=== PATIENT | female | born 1965 | race Caucasian/White ===

== ENCOUNTER 2018-08-15 09:27 | Emergency (ER) | payer MEDICAID ==
[~2018-08-15] VITALS: Ht 157.5 cm; Wt 100.0 kg
[~2018-08-15 09:27] MED LIST: NO HOME MEDS
[2018-08-15 09:30] VITALS: BP 135/78
[2018-08-15] MEDS ORDERED: cephalexin 250mg capsule PO ONE (10:00)
[2018-08-15] MEDS ORDERED: LIDOcaine 1% 30ml preserv. free vial IJ ONE (10:00)
--- NOTE | 2018-08-15 10:33 | NUR ---
pt. very upset with the md... as the charge nurse i had a 20 minute discussion with pt. i talked to the PA who agreed to see pt. pt. brought back into room 09
--- NOTE | 2018-08-15 10:40 | NUR ---
pulled medications and went into pt's room.... pt. stated tearfully that she did not think she would be able to let us stick a needle in her finger.... i explained to her that they could not sew her finger closed with out numbing it. i told her i would personaly hold her hand. i explained that after it was numb the pain would go away.... room set up for sutures.
[2018-08-15] MEDS ORDERED: CEPH500C5 PO (11:29)
[2018-08-15] MEDS ORDERED: HYDR-4383 PO (11:29)
--- NOTE | 2018-08-15 11:31 | NUR ---
PT AGREED TO GO BACK TO ROOM AND SEE A DIFFERENT PROVIDER.
== END 2018-08-15 12:30 | disposition home or self-care (01) ==
LOC: ER 09:28
DX: S61.211A Laceration without foreign body of left index finger without damage to nail, initial encounter (principal); F15.90 Other stimulant use, unspecified, uncomplicated; F19.90 Other psychoactive substance use, unspecified, uncomplicated; Z86.19 Personal history of other infectious and parasitic diseases; Z90.49 Acquired absence of other specified parts of digestive tract; Z98.890 Other specified postprocedural states; Z88.5 Allergy status to narcotic agent; W26.8XXA Contact with other sharp object(s), not elsewhere classified, initial encounter; Y93.89 Activity, other specified; Y92.89 Other specified places as the place of occurrence of the external cause; Y99.8 Other external cause status
CPT/HCPCS: 12001; 73140; 99283; J3490

== ENCOUNTER 2018-08-17 00:31 | Inpatient (IN) | payer MEDICAID | END 2018-08-22 14:10 | disposition home or self-care (01) | LOC: ER 00:31 → ED HOLD 02:49 → ORTHO 4S 03:45 ==

== ENCOUNTER 2019-09-07 13:21 | Emergency (ER) | payer MEDICAID ==
[~2019-09-07] VITALS: Ht 157.5 cm; Wt 105.2 kg
[~2019-09-07 13:21] MED LIST changes: +HYDR-4383 PO; +LACT1CAP26 PO; -NO HOME MEDS
[2019-09-07 13:26] VITALS: BP 136/63
--- NOTE | 2019-09-07 14:30 | NUR ---
PT STATES THAT SHE IS GOING TO LEAVE, SHE IS BREATHING BETTER AND THAT SHE WILL BE FINE. LEGAL ARBITRATOR NOTIFIED, PT TAKEN TO FAST TRACK FOR VERTICAL 3 EVALUATION BY PROVIDER.
[2019-09-07] MEDS ORDERED: BUDE180A INH (15:34)
[2019-09-07] MEDS ORDERED: ALBU18HF2 INH (15:34)
--- NOTE | 2019-09-07 15:37 | NUR ---
PT REQUESTING TO LEAVE DUE TO IT BEING BUSY. PT ASKED TO WAIT A MOMENT AND THAT A MD WOUND BE CONTACTED. DR GERMAN SAW PT IN ER [phone]
[2019-09-07] MEDS ORDERED: AZIT-31 PO (15:46)
== END 2019-09-07 15:53 | disposition home or self-care (01) ==
LOC: ER 13:22
DX: J44.1 Chronic obstructive pulmonary disease with (acute) exacerbation (principal); F41.9 Anxiety disorder, unspecified; F17.200 Nicotine dependence, unspecified, uncomplicated; F15.90 Other stimulant use, unspecified, uncomplicated; Z86.19 Personal history of other infectious and parasitic diseases; Z90.49 Acquired absence of other specified parts of digestive tract; Z98.890 Other specified postprocedural states; Z56.0 Unemployment, unspecified; Z88.6 Allergy status to analgesic agent; Z79.899 Other long term (current) drug therapy
CPT/HCPCS: 71045; 99283

== ENCOUNTER 2019-12-04 12:48 | Emergency (ER) | payer MEDICAID ==
[~2019-12-04] VITALS: Ht 157.5 cm; Wt 113.2 kg
[~2019-12-04 12:48] MED LIST changes: +ALBU18HF2 INH; +BUDE180A INH
[2019-12-04] MEDS ORDERED: ibuprofen 200mg tablet PO ONE (14:15)
[2019-12-04 15:01] VITALS: BP 124/59
== END 2019-12-04 15:29 | disposition home or self-care (01) ==
LOC: ER 12:48
DX: M25.561 Pain in right knee (principal); J44.9 Chronic obstructive pulmonary disease, unspecified; F41.9 Anxiety disorder, unspecified; F15.90 Other stimulant use, unspecified, uncomplicated; F11.90 Opioid use, unspecified, uncomplicated; Z56.0 Unemployment, unspecified; Z86.19 Personal history of other infectious and parasitic diseases; Z90.49 Acquired absence of other specified parts of digestive tract; Z98.890 Other specified postprocedural states; Z88.5 Allergy status to narcotic agent; Z79.899 Other long term (current) drug therapy; W01.0XXA Fall on same level from slipping, tripping and stumbling without subsequent striking against object, initial encounter; Y93.89 Activity, other specified; Y92.89 Other specified places as the place of occurrence of the external cause; Y99.8 Other external cause status
CPT/HCPCS: 29505; 73502; 73564; 99284

== ENCOUNTER 2021-11-24 07:13 | Emergency (ER) | payer MEDICAID ==
[~2021-11-24] VITALS: Ht 157.5 cm; Wt 102.3 kg
[2021-11-24 08:27] LABS: BASOPHILS % (AUTO) 0.4 % (0-1); EOSINOPHILS # (AUTO) 0.3 X10'3 (0-0.9); EOSINOPHILS % (AUTO) 3.4 % (0-6); HEMATOCRIT 43.7 % (35.0-45.0); HEMOGLOBIN 14.4 g/dl (12.0-16.0); LYMPHOCYTES # (AUTO) 2.2 X10'3 (1.1-4.8); LYMPHOCYTES % (AUTO) 25.9 % (21-51); MEAN CORPUSCULAR HEMOGLOBIN 28.5 PG (27.0-31.0); MEAN CORPUSCULAR VOLUME 86.5 FL (78-98); MEAN PLATELET VOLUME 8.1 FL (7.4-10.4); MONOCYTES # (AUTO) 0.6 X10'3 (0-0.9); MONOCYTES % (AUTO) 6.6 % (2-12); NEUTROPHILS # (AUTO) 5.5 X10'3 (1.8-7.7); NEUTROPHILS % (AUTO) 63.7 % (42-75); PLATELET COUNT 351 X10'3 (140-440); RED BLOOD COUNT 5.05 X10'6 (4.20-5.60); RED CELL DISTRIBUTION WIDTH 13.3 % (11.5-14.5); WHITE BLOOD COUNT 8.7 X10'3 (4.5-11.0)
[2021-11-24 08:35] LABS: ALANINE AMINOTRANSFERASE 38 U/L (12-78); ALBUMIN 3.6 G/DL (3.4-5.0); ALBUMIN/GLOBULIN RATIO 0.9 (1.1-1.5); ALKALINE PHOSPHATASE 60 IU/L (46-116); ANION GAP 9 (8-16); ASPARTATE AMINO TRANSFERASE 16 U/L (10-37); BILIRUBIN,TOTAL 0.2 MG/DL (0.1-1.0); BLOOD UREA NITROGEN 13 MG/DL (7-18); BUN/CREATININE RATIO 20.3 (6.6-38.0); CALCIUM 8.6 MG/DL (8.5-10.1); CHLORIDE 105 MMOL/L (99-107); CREATININE 0.64 MG/DL (0.40-0.90); GLUCOSE 116 MG/DL (70-104); POTASSIUM 4.1 MMOL/L (3.5-5.1); SODIUM 141 MMOL/L (135-145); TOTAL CARBON DIOXIDE 27.4 MMOL/L (24-32); TOTAL PROTEIN 7.6 G/DL (6.4-8.2); eGFR > 90 ML/MIN
[2021-11-24] MEDS ORDERED: ipratropium/albuterol 3ml nebule NEB ONE (09:20)
--- NOTE | 2021-11-24 09:52 | NUR ---
RT AT BEDSIDE.
--- NOTE | 2021-11-24 10:15 | NUR ---
PROVIDER AT BEDSIDE.
[2021-11-24] MEDS ORDERED: PRED20TA PO (10:25)
[2021-11-24 10:33] VITALS: BP 145/82
== END 2021-11-24 10:30 | disposition home or self-care (01) ==
LOC: ER 07:14
DX: J44.1 Chronic obstructive pulmonary disease with (acute) exacerbation (principal); F41.9 Anxiety disorder, unspecified; I50.9 Heart failure, unspecified
CPT/HCPCS: 36415; 71045; 80053; 83880; 84484; 85025; 93005; 94640; 94760; 99285